=== PATIENT | female | born 2000 | race Caucasian/White ===

== ENCOUNTER 2021-07-19 08:55 | Emergency (ER) | payer OTHER ==
[2021-07-19 10:58] LABS: BASOPHIL 0.5 % (0-2); EOSINOPHIL 0.5 % (0-5); HCT 40.6 % (37.0-47.0); HGB 13.9 g/dl (12.5-16.0); LYMPHOCYTE 8.2 % (15-48); MCHC 34.2 g/dL (32.0-36.0); MCV 87.5 fL (78.0-100.0); MONOCYTE 14.3 % (0-12); NRBC 0; PLT 242 K/uL (150-400); RBC 4.64 M/uL (4.20-5.40); WBC 3.8 K/uL (4.0-10.5)
[2021-07-19 10:59] LABS: ALBUMIN 3.9 g/dL (3.4-5.0); BILIRUBIN - TOTAL 0.3 mg/dL (0.2-1.0); BUN/CREAT RATIO (CALC) 11.5 RATIO; CREATININE 0.78 mg/dL (0.51-0.95); GLOBULIN (CALCULATION) 3.3 g/dL; POTASSIUM 3.6 mmol/L (3.5-5.1); TOTAL PROTEIN 7.2 g/dL (6.4-8.2)
[2021-07-19 11:13] LABS: LACTIC ACID 0.8 mmol/L (0.4-1.9)
[2021-07-19 12:02] LABS: BILIRUBIN 1+ mg/dL (NEGATIVE); BLOOD TRACE-INTACT Ery/uL (NEGATIVE); CLARITY CLEAR (CLEAR); COLOR YELLOW (YELLOW); GLUCOSE (U) NORMAL (NORMAL); LEUKOCYTES NEGATIVE Leu/uL (NEGATIVE); NITRITE NEGATIVE (NEGATIVE); PROTEIN TRACE (LOW) mg/dL (NEGATIVE); SPECIFIC GRAVITY >=1.030 (1.001-1.030); UROBILINOGEN 0.2 mg/dL (0.2-1.0)
[2021-07-19 12:08] LABS: INFLUENZA A NAA NEGATIVE (NEGATIVE)
[2021-07-19 12:16] LABS: CORONAVIRUS 2019 SARS-COV-2 POSITIVE (NEGATIVE)
[2021-07-19 12:19] LABS: MUCOUS MODERATE
[2021-07-19 12:20] LABS: BACTERIA TRACE; CALCIUM OXALATE CRYSTALS MODERATE; SPERM PRESENT
[2021-07-19] MEDS ORDERED: NORCO 5/3251 EACH PO (14:41)
[2021-07-19] MEDS ORDERED: NAPROXEN500 MG PO (14:41)
[2021-07-19] MEDS ORDERED: MEDROL 4MG DOSEP4 MG PO (14:41)
[2021-07-19] MEDS ORDERED: PAXLOVID CO-PA1 EAC1 PO (14:44)
== END 2021-07-19 15:00 | disposition home or self-care (01) ==
LOC: FER 08:55
PROVIDERS: Emergency Medicine
DX: M46.1 Sacroiliitis, not elsewhere classified (principal); U07.1 COVID-19; F17.210 Nicotine dependence, cigarettes, uncomplicated; Z88.0 Allergy status to penicillin; Z88.2 Allergy status to sulfonamides
CPT/HCPCS: 36415; 72131; 80053; 81001; 83605; 84145; 84703; 85025; 87040; 87088; J1170; J1885; J2405; J7030; U0002